=== PATIENT | male | born 1995 | race Hispanic/Latino ===

== ENCOUNTER 2019-03-11 12:33 | Outpatient (CLI) | payer BC, OTHER ==
--- NOTE | 2019-03-15 14:03 | PFT ---
PATIENT HISTORY: HEIGHT: 68 IN WEIGHT: 192 SMOKER: NEVER HOW LONG: NA PACKS PER DAY PRODUCTIVE COUGH: LUNG DISEASE: PHYSICIAN INTERPRETATION FINAL REPORT: Patient had good effort and cooperation. PFT data: FVC 5.56 (105%), FEV1 4.49 (99%) FEV1/FVC 0.81 RV 0.86 (58%),TLC 6.04 (89%) Diffusion 31.1 (82%) The FEV1 and the FVC fall within the normal limits. The ratio is also normal suggesting there is no evidence of obstructive air flow limitation. The flow volume loops are normal. The residual volume is reduced, although the The Total Lung Capacity falls with in the normal limits. The reduction in the RV may be an artifact of incomplete exhalation, given that the ERV is elevated. Diffusion Capacity is with in the lower limits of normal. IMPRESSION: Overall, these pulmonary function studies including spirometry and diffusion capacity are normal. I have no priors for comparison. Service Coordinator: [place] Mathematical Statistician: [place] GUARDADO
== END 2019-03-11 12:34 | disposition home or self-care (01) ==
LOC: CP 12:33
PROVIDERS: ATTEND Internal Medicine Hematology & Oncology
DX: C81.91 Hodgkin lymphoma, unspecified, lymph nodes of head, face, and neck (principal); I08.1 Rheumatic disorders of both mitral and tricuspid valves; Z79.899 Other long term (current) drug therapy
CPT/HCPCS: 93306; 94010; 94727; 94729

== ENCOUNTER 2019-03-12 09:40 | Outpatient (CLI) | payer BC ==
--- NOTE | 2019-03-12 09:44 | PET ---
PET W CT Skull to Mid Thigh History: CAD 1.91 lymphoma. Initial examination. Comparison: None. Findings: PET CT from the skull-mid thigh was performed after the intravenous administration of 11.2 mCi F-18 FDG. Intracranial uptake is normal and symmetric. There is extensive right unilateral asymmetric cervical adenopathy involving rossi chain segments level IIa, IIb, III, V, and level with SUV max 13.97. No left cervical adenopathy. No supraclavicular adenopathy. No submental or submandibular adenopathy. No abnormal oropharyngeal uptake. No axillary adenopathy. No internal mammary nor mediastinal adenopathy. No adenopathy below the hemid iaphragms. On the CT images for attenuation correction the lungs are clear. No abnormal pulmonary nodule. No per icardial effusion. No consolidation. No hydronephrosis. No free intraperitoneal gas or fluid. The appendix is visualized and is normal. No acute osseous abnormality. No suspicious osteolytic or osteoblastic lesions. Impression: Unilateral right cervical adenopathy correspond to patient's known history of lymphoma. N o left cervical adenopathy, intrathoracic, or intra-abdominal/pelvic adenopathy.
== END 2019-03-12 12:00 | disposition home or self-care (01) ==
LOC: PET 09:40
PROVIDERS: ATTEND Internal Medicine Hematology & Oncology
DX: C85.90 Non-Hodgkin lymphoma, unspecified, unspecified site (principal); R59.0 Localized enlarged lymph nodes
CPT/HCPCS: 78815; A9552

== ENCOUNTER 2019-03-12 10:04 | Day surgery (SDC) | payer BC, OTHER ==
[2019-03-11 09:28] VITALS: BMI 29.2
[2019-03-12] MEDS ORDERED: ceFAZolin Sodium (SDC) 2 GM/100 ML BAG ONE (10:29)
[2019-03-12] MEDS ORDERED: Bupivacaine/Epinephrine 0.25% 30 ML VIAL ONE (11:47)
[2019-03-12] MEDS ORDERED: Lidocaine 2% PF 5 ML VIAL ONE (11:47)
[2019-03-12] MEDS ORDERED: Fentanyl 100 MCG/2 ML VIAL ONE (12:01)
[2019-03-12] MEDS ORDERED: HYDROcodone/Acetaminophen 5/325 mg Tablet ONE (13:21)
--- NOTE | 2019-03-12 13:26 | OP ---
DATE OF PROCEDURE: 03/12/2019 PREOPERATIVE DIAGNOSIS: Lymphoma. POSTOPERATIVE DIAGNOSIS: Lymphoma. PROCEDURE PERFORMED: Tunneled central line subcutaneous port (MediPort CT injectable). ANESTHESIA: General. ESTIMATED BLOOD LOSS: Minimal. COMPLICATIONS: None. SPECIMEN: None. FINDINGS: The tip of the catheter was at the atriocaval junction. DESCRIPTION OF PROCEDURE: The patient was taken to the operating room and laid supine on the operating room table. After general anesthetic was obtained, the bilateral neck and chest were shaved, prepped, and draped in a sterile fashion. Local anesthetic was infiltrated over the left internal jugular vein. Internal jugular vein was cannulated using a 22-gauge finder needle, followed by a Seldinger needle. Wire was passed into the superior vena cava under fluoro guidance. A xochitl was made at the wire entrance site. A separate 3-cm incision was made in the left upper chest. Subcutaneous pocket was made below the lower incision. Tubing for the MediPort tunneled from the inferior to the superior incision. Introducer sheath was placed over the wire into the superior vena cava. Dilator and wire were removed. The end of the catheter was sewn into the sheath. As the sheath was peeled away, the tip of the catheter was at the atriocaval junction. MediPort tubing was cut to fit the MediPort at the lower incision, MediPort was connected to the tubing and sewn to the chest wall in the subcutaneous pocket using Prolene. The MediPort flushed and tamela blood without difficulty, it was flushed with a heparin flush. The wounds were irrigated and closed using 3-0 Vicryl, 4-0 Monocryl, and Dermabond. The patient in stable condition. All instrument counts, needle counts, and lap counts were correct. Job ID: [id number]
--- NOTE | 2019-03-12 14:21 | RAD ---
RADIOGRAPH CHEST 1 VIEW: DATE: 03-12-19 TIME: 12:46 P.M. HISTORY: 23-year-old male with lymphoma, status post Mediport placement. FINDINGS: The visualized lung peng are clear. The cardiomediastinal silhouette and hilar shadows are normal. The lateral costophrenic angles are sharp. The osseous structures appear normal. There is no pneu mothorax. There is a Mediport which takes a loop in the medial left lower neck, then crosses the uppe r mediastinum to the right, with the distal tip overlying the SVC/right atrial junction. IMPRESSION: 1. Left sided implantable vascular access port placement without pneumothorax. 2. Otherwise negative. jn POS: CET
== END 2019-03-12 14:08 | disposition home or self-care (01) ==
LOC: SDC 10:04
PROVIDERS: ATTEND Surgery
PROC: 05HN33Z Insertion of Infusion Device into Left Internal Jugular Vein, Percutaneous Approach (ICD-10-PCS; principal; 2019-03-12)
DX: C85.90 Non-Hodgkin lymphoma, unspecified, unspecified site (principal); Z79.899 Other long term (current) drug therapy
CPT/HCPCS: 71045; C1788; J0690; J1642; J2001; J3010

== ENCOUNTER 2019-05-07 07:41 | Outpatient (CLI) | payer BC, OTHER ==
--- NOTE | 2019-05-07 10:29 | PET ---
PET SCAN WITH CT ATTENUATION CORRECTION: HISTORY: Hodgkin's lymphoma, right neck. COMPARISON: 03/12/2019. TECHNIQUE: PET scan with CT attenuation correction was performed from the skull vertex to the proximal thighs fo llowing the intravenous administration of 10.2 mm of [id number]. FINDINGS: Head and neck: Previously noted enlarged right neck lymph nodes have significantly decreased in size. Currently, there does not appear to be any significant FDG avidity right neck. There are no new areas of FDG avidity in the left neck. There is mild FDG avidity at the level of the lingual tonsils with a maximum SUV of 6.3 (previously 5.8). The possibility of lingual tonsillar pulmonary disc involvement cannot be excluded. Though the right neck and left neck lymph nodes are not hypermetabol ic, based on the CT used for attenuation correction, there is mild lymphadenopathy. Stroboroma Operator nonhypermetabolic enlarged right level 5 lymph node measures 1.4 x 1.2 cm. A large nonhypermetabolic left level 2 lymph node measures 1.3 x 1.7 cm. Chest:: No FDG avidity. Abdomen and pelvis: No abnormal FDG avidity. Osseous structures: No abnormal FDG avidity. IMPRESSION: 1. Mildly enlarged, non-FDG avid soft tissue neck lymph nodes. Absence of FDG avidity suggests respon se to therapy. 2. Hypermetabolic activity involving the lingual tonsils, nonspecific. Hypermetabolic activity was no elliot on the previous examination. Significance is uncertain. Recommend direct visualization 3. No evidence of hypermetabolic lymph nodes of chest, abdomen, or pelvis. Transcribed Date/Time: 05/07/2019 10:57 AM
== END 2019-05-07 07:42 | disposition home or self-care (01) ==
LOC: PET 07:41
PROVIDERS: ATTEND Internal Medicine Hematology & Oncology
DX: C81.91 Hodgkin lymphoma, unspecified, lymph nodes of head, face, and neck (principal); R59.0 Localized enlarged lymph nodes
CPT/HCPCS: 78815; A9552

== ENCOUNTER 2019-11-12 09:40 | Outpatient (CLI) | payer BC, OTHER ==
--- NOTE | 2019-11-12 11:57 | PET ---
Nuclear medicine FDG PET/CT: (Positron emission tomography and computed tomography) DATE: 11/12/2019 HISTORY: 24-year-old male with Hodgkin's lymphoma of the neck. ICD-10: C 81.91. Subsequent PET scan follow-up after chemotherapy. COMPARISON: 05/07/2019 TECHNIQUE: IV injection of F-18 fluorodeoxyglucose (FDG) dose: 11.1 mCi. PET scan and attenuation correction CT performed from skull base to proximal thighs. PET scan and attenuation correction CT thinner slices performed through head and neck. FINDINGS: SUV (standard uptake values) numbers given are maximum SUVs. QCLR used. Whereas previously, there was strong FDG avidity (previous SUV 6.3) throughout the lingual tonsil, no w, there is stronger such uptake, especially in the left side of the lingual tonsil where the current SUV is 10.5. This is contiguous with strong FDG avidity unilaterally in the left palatine ton shawn with current SUV of 11.5, another new finding. Many of the previously described mildly enlarged bilateral cervical nonhypermetabolic lymph nodes hav e decreased in size. For example, a right level 5A node that was approximately 1.5 x 0.8 cm has decreased to current size of approximately 0.7 x 0.6 cm, and this remains not hypermetabolic. However, there is a new finding of bilateral slightly enlarged hypermetabolic submandibular lymph nod es. For example, a right level 1B lymph node measuring approximately 1 x 0.5 cm has SUV of 5.2. A similar-sized contralateral left level 1B lymph node has SUV of 3.3. Furthermore, there are now hypermetabolic level 2 lymph nodes. This includes a 1 x 0.5 cm right level 2 lymph node, which is not considered enlarged, but has SUV of 3.2. The contralateral 1.5 x 1 cm left level 2 lymph node has SUV of 5.2. Previously, centered slightly to the right of midline, adenoidal tissue had SUV of 7.6. Typically, th is type of activity in Waldeyer's ring is due to inflammatory changes, although it is usually very difficult to absolutely rule out neoplastic activity. Now, the hypermetabolic activity is distributed more peripherally to the left and right in the nasoph arynx including bilateral fossa of Rosenmuller, as well as at midline, with SUV up to 7.0 on the left, 6.0 on the right, and 6.0 at midline. Given the unilateral changes in the left palatine tonsil, this change in the distribution of hypermetabolic activity in the nasopharynx should be viewed with some suspicion for neoplastic activity. There is no suspicious, abnormal FDG-avid tissue in the thorax, abdomen, or pelvis. IMPRESSION: 1) new finding of asymmetrically strong FDG uptake in the left palatine tonsil, contiguous with inter mara further increase in uptake in the left side of the lingual tonsil, suspicious for lymphomatous malignant activity. 2) new finding of FDG avid bilateral level 1B submandibular lymph nodes. 3) new finding of FDG avid bilateral level 2 lymph nodes, especially on the left, suspicious for lymp homatous malignant activity. 4) interval shrinkage of nonhypermetabolic bilateral posterior cervical lymph nodes. 5) greater distribution of hypermetabolic activity in the nasopharynx, nonspecific, but slightly susp icious. 6) overall progression of disease in the neck. 7) no evidence of active lymphoma in the chest, abdomen, or pelvis.
== END 2019-11-12 09:41 | disposition home or self-care (01) ==
LOC: PET 09:40
PROVIDERS: ATTEND Internal Medicine Hematology & Oncology
DX: C81.91 Hodgkin lymphoma, unspecified, lymph nodes of head, face, and neck (principal)
CPT/HCPCS: 78815; A9552

== ENCOUNTER 2020-05-03 00:03 | Emergency (ER) | payer OTHER, BC ==
[2020-05-03] MEDS ORDERED: Ibuprofen 800 MG TAB ONE (00:39)
--- NOTE | 2020-05-03 07:38 | RAD ---
PRELIMINARY REPORT/[facility]/EMERGENCY AFTER HOURS PROCEDURE EXAM: XR left foot, 3 View. CLINICAL HISTORY: Eval for possible fx; left foot crushed COMPARISON: None provided. FINDINGS: BONES: No acute fracture or focal osseous lesion. JOINTS: No dislocation. Joint spaces normal. SOFT TISSUES: The soft tissues are unremarkable. IMPRESSION: No acute osseous abnormality. ELECTRONICALLY SIGNED BY: Joao Maurer MD May 03, 2020 12:40:30 AM CDT This report is intended for review by the ordering physician only, in accordance of law. If you recei ve this report in error, please call [facility] at [phone]. FINAL REPORT EMERGENT AFTER HOURS 3 VIEWS LEFT FOOT: HISTORY: Crushing injury to foot. IMPRESSION: 1. Prominent subcutaneous soft tissue swelling at the medial aspect of the left midfoot. 2. No fracture or dislocation is seen involving the left foot. 3. Findings are in agreement with preliminary report by [facility]. Transcribed Date/Time: 05/03/2020 7:46 AM
== END 2020-05-03 01:13 | disposition home or self-care (01) ==
LOC: ERS 00:03
DX: S97.82XA Crushing injury of left foot, initial encounter (principal); F98.8 Other specified behavioral and emotional disorders with onset usually occurring in childhood and adolescence; Z79.899 Other long term (current) drug therapy; W23.0XXA Caught, crushed, jammed, or pinched between moving objects, initial encounter